=== PATIENT | female | born 1990 | race Caucasian/White ===

== ENCOUNTER 2023-11-22 13:15 | Inpatient (IN) | payer BC ==
[~2023-11-22] VITALS: Ht 154.9 cm; Wt 2.7 kg
[2023-12-01 02:37] VITALS: BP 121/67
[2023-12-01] MEDS ORDERED: PRENATAL TABLE1 EAC1 PO (03:14)
[2023-12-01 03:22] VITALS: BP 121/67
[2023-12-01] MEDS ORDERED: RINGERS SOLUTION,LACTATED 1,000 ML IV SCH (03:30)
[2023-12-01 04:19] LABS: HEMATOCRIT 36.6 % (36.0-45.00); HEMOGLOBIN 12.7 g/dL (12.0-15.00); MEAN CORPUSCULAR HEMOGLOBIN 32.4 pg (27.00-32.0); MEAN CORPUSCULAR HGB CONC 34.8 g/dl (32.0-36.0); PLATELET COUNT 293 K/uL (150-450); RED BLOOD COUNT 3.93 M/uL (4.00-6.00); RED CELL DISTRIBUTION WIDTH 13.4 % (11.5-14.5)
[2023-12-01 04:29] LABS: INR < 0.93; PARTIAL THROMBOPLASTIN TIME 26.2 SECONDS (22.0-34.0); PROTHROMBIN TIME 9.8 SECONDS (9.0-11.5)
[2023-12-01 04:32] LABS: BILIRUBIN TOTAL 0.19 mg/dL (0.3-1.2); CALCIUM 9.3 mg/dL (8.5-10.1); CREATININE SERUM 0.53 mg/dL (0.55-1.02); GFR 132.05; GLOBULINA 3.7 G/DL (2.4-3.5); POTASSIUM 4.02 mEq/L (3.5-5.1); TOTAL PROTEIN 6.7 gm/dL (6.4-8.2)
[2023-12-01 07:21] VITALS: BP 109/68
[2023-12-01] MEDS ORDERED: OXYTOCIN 1,000 ML IV ONE (08:30)
[2023-12-01] MEDS ORDERED: OXYTOCIN 500 ML IV SCH (08:45)
[2023-12-01] MEDS ORDERED: MORPHINE SULFATE 4 MG/ML CARTRIDGE IV PRN ×2 (10:00→19:30)
[2023-12-01 10:39] VITALS: BP 105/70
[2023-12-01 13:41] VITALS: BP 121/76
[2023-12-01 15:28] VITALS: BP 132/61
[2023-12-01] MEDS ORDERED: OXYTOCIN 1,000 ML IV SCH (19:30)
[2023-12-01] MEDS ORDERED: METHYLERGONOVINE MALEATE 0.2 MG/ML AMPUL IJ ONE (20:45)
[2023-12-01] MEDS ORDERED: ERYTHROMYCIN BASE OPHT 1GM EACH TUBE OP ONE (21:00)
[2023-12-01] MEDS ORDERED: CEFAZOLIN SODIUM 1,000 MG VIAL IV ONE (21:00)
[2023-12-01] MEDS ORDERED: OXYTOCIN 10 UNITS/ML VIAL IV ONE (21:00)
[2023-12-01] MEDS ORDERED: MEPERIDINE HCL 25 MG/ML AMPUL IV ONE (23:30)
[2023-12-02 01:56] VITALS: BP 113/68
[2023-12-02 08:54] VITALS: BP 113/72
[2023-12-02] MEDS ORDERED: IBUprofen 400 MG TABLET PO SCH (09:00)
[2023-12-02] MEDS ORDERED: IBUprofen 400 MG TABLET PO PRN (14:15)
[2023-12-02] MEDS ORDERED: OxyCODONE HCL/APAP UD (PERCOCET) PO PRN (14:15)
[2023-12-02 14:33] LABS: HEMATOCRIT 36.3 % (36.0-45.00); HEMOGLOBIN 12.7 g/dL (12.0-15.00); MEAN CELL VOLUME 94.3 fL (80.00-100.00); MEAN CORPUSCULAR HEMOGLOBIN 32.9 pg (27.00-32.0); MEAN CORPUSCULAR HGB CONC 34.9 g/dl (32.0-36.0); PLATELET COUNT 286 K/uL (150-450); RED BLOOD COUNT 3.85 M/uL (4.00-6.00); RED CELL DISTRIBUTION WIDTH 13.3 % (11.5-14.5)
[2023-12-02 15:05] LABS: ALBUMIN 2.6 gm/dL (3.4-5.0); BILIRUBIN TOTAL 0.43 mg/dL (0.3-1.2); CALCIUM 9.5 mg/dL (8.5-10.1); CREATININE SERUM 0.63 mg/dL (0.55-1.02); GFR 108.17; GLOBULINA 3.5 G/DL (2.4-3.5); POTASSIUM 4.19 mEq/L (3.5-5.1); TOTAL PROTEIN 6.1 gm/dL (6.4-8.2)
[2023-12-02 16:00] VITALS: BP 97/58
[2023-12-03 02:25] VITALS: BP 103/63
[2023-12-03] MEDS ORDERED: OxyCODONE HCL 5 MG TABLET (ROXICODONE) PO PRN (06:00)
[2023-12-03 08:00] VITALS: BP 100/63
[2023-12-03] MEDS ORDERED: IBUprofen 400 MG TABLET PO PRN (09:00)
[2023-12-03 16:04] VITALS: BP 114/75
[2023-12-04 00:27] VITALS: BP 100/60
[2023-12-04 08:00] VITALS: BP 99/66
== END 2023-12-04 17:22 | DRG 788 ==
LOC: LDR 12-01 03:06 → O/R 12-01 18:29 → OB/GYN 12-01 19:58
PROVIDERS: Obstetrics & Gynecology; ADMIT Obstetrics & Gynecology Maternal & Fetal Medicine; ATTEND Obstetrics & Gynecology Maternal & Fetal Medicine
PROC: 4A1HXCZ Monitoring of Products of Conception, Cardiac Rate, External Approach (ICD-10-PCS; 2023-12-01)
PROC: 10D00Z1 Extraction of Products of Conception, Low, Open Approach (ICD-10-PCS; principal; 2023-12-01 18:00)
DX: O82 Encounter for cesarean delivery without indication (principal); Z3A.40 40 weeks gestation of pregnancy; Z37.0 Single live birth; Z20.822 Contact with and (suspected) exposure to COVID-19

== ENCOUNTER 2023-11-25 14:17 | Outpatient (CLI) | payer BC | END 2023-11-25 15:35 | disposition home or self-care (01) | LOC: NST 14:17 | PROVIDERS: ATTEND Obstetrics & Gynecology Maternal & Fetal Medicine | DX: Z34.83 Encounter for supervision of other normal pregnancy, third trimester (principal) ==

== ENCOUNTER → 2023-11-27 | Outpatient (CLI) | payer BC | END | disposition home or self-care (01) | LOC: NST 15:37 | PROVIDERS: ATTEND Obstetrics & Gynecology | DX: Z34.83 Encounter for supervision of other normal pregnancy, third trimester (principal) ==